=== PATIENT | female | born 1985 | race Caucasian/White ===

== ENCOUNTER 2019-04-25 10:50 | Emergency (ER) | payer MEDICAID ==
[~2019-04-25] VITALS: Ht 157.5 cm; Wt 121.6 kg
[2019-04-25 11:15] VITALS: BP 141/87
--- NOTE | 2019-04-25 11:25 | NUR ---
BIB . AAO X4 C/O LEFT LOWER ABD PAIN RADIATING TO RIGHT LOWER ABDOMINAL SINCE ONE WEEK AGO, TOOK IBUPROFEN LAST NIGHT WITH MILD RELIEF. PT STATES ACHING AND STABBING PAIN 8/10. PT ALSO C/O NAUSEA, VOMITTED ONE TIME LAST NIGHT WITH YELLOWISH CLEAR LIQUID MUCOUS. PT DENIES VOMITING AT THIS TIME. PT AFEBRILE, DENIES DIARRHEA. ABDOMEN TO LEFT LOWER QUADRANT TENDER TO TOUCH. ALL ABDOMINAL QUADRANTS ACTIVE UPON AUSCULTATION. ER TO EVALUATE PT.
--- NOTE | 2019-04-25 11:52 | NUR ---
DR GAYLE AT BEDSIDE FOR PT EVALUATION
[2019-04-25] MEDS ORDERED: DICYCLOMINE 20 MG/2 ML VIAL IM ONE (12:05)
[2019-04-25] MEDS ORDERED: KETOROLAC 60 MG/2 ML VIAL IM ONE (12:05)
[2019-04-25] MEDS ORDERED: LACTULOSE 20 GM/30 ML UDC PO ONE (12:05)
--- NOTE | 2019-04-25 12:14 | NUR ---
Patient taken to XRAY via wheelchair by tech.
[2019-04-25 13:23] LABS: BARBITURATE, URINE NEG. ng/ml (NEG <=200); BENZODIAZEPINE, URINE NEG. ng/mL (NEG <=200); CANNABINOID, URINE NEG. ng/mL (NEG <=50); COCAINE, URINE NEG. ng/mL (NEG <=300); OPIATE, URINE NEG. ng/mL (NEG <=2000); PHENCYCLIDINE SCREEN,URINE NEG. ng/mL (NEG <=25)
[2019-04-25 13:45] VITALS: BP 137/88
--- NOTE | 2019-04-25 13:45 | NUR ---
Patient discharged with v/s stable. Written and verbal after care instructions given and explained. Patient alert, oriented and verbalized understanding of instructions. Ambulatory with steady gait. All questions addressed prior to discharge. ID band removed. Patient advised to follow up with PMD. Rx of REGLAN 10MG AND COLACE 100MG given. Patient educated on indication of medication including possible reaction and side effects. Opportunity to ask questions provided and answered.
[2019-04-25 13:46] LABS: APPEARANCE,URINE HAZY (CLEAR); BILIRUBIN,URINE NEGATIVE (NEGATIVE); BLOOD, URINE 1+ (NEGATIVE); COLOR,URINE YELLOW (YELLOW); LEUKOCYTE ESTERASE ,URINE NEGATIVE (NEGATIVE); NITRITE, URINE NEGATIVE (NEGATIVE); PH,URINE 6.5 (5.0-9.0); UGLUCOSE NEGATIVE (NEGATIVE)
[2019-04-25 14:01] LABS: WBC,URINE 0-5 /HPF (0-5)
== END 2019-04-25 13:45 | disposition home or self-care (01) ==
LOC: MED 10:50
DX: R10.32 Left lower quadrant pain (principal); K59.00 Constipation, unspecified; R11.2 Nausea with vomiting, unspecified; Z90.49 Acquired absence of other specified parts of digestive tract
CPT/HCPCS: 74018; 80305; 81001; 81025; 96372; 99284; J0500; J1885

== ENCOUNTER 2019-12-20 00:29 | Emergency (ER) | payer MEDICAID ==
[~2019-12-20] VITALS: Ht 167.6 cm; Wt 117.9 kg
[2019-12-20 00:40] VITALS: BP 135/90
--- NOTE | 2019-12-20 00:43 | NUR ---
TO LOBBY A/W BED AMBULATORY
[2019-12-20 03:44] VITALS: BP 135/90
--- NOTE | 2019-12-20 03:44 | NUR ---
PATIENT EDUCATED AND DISCHARGED BY DR. ROY. AMB WITH STEADY GAIT.
[2019-12-20 04:09] LABS: APPEARANCE,URINE CLEAR (CLEAR); BILIRUBIN,URINE NEGATIVE (NEGATIVE); BLOOD, URINE 2+ (NEGATIVE); COLOR,URINE YELLOW (YELLOW); LEUKOCYTE ESTERASE ,URINE NEGATIVE (NEGATIVE); NITRITE, URINE NEGATIVE (NEGATIVE); UGLUCOSE NEGATIVE (NEGATIVE)
[2019-12-20 05:08] LABS: RBC,URINE 11-20 (MOD) /HPF (0-5); WBC,URINE 0-5 /HPF (0-5)
== END 2019-12-20 03:44 | disposition home or self-care (01) ==
LOC: MED 00:29
DX: N39.0 Urinary tract infection, site not specified (principal)
CPT/HCPCS: 81001; 99283

== ENCOUNTER 2024-04-21 20:03 | Emergency (ER) | payer MEDICAID ==
[~2024-04-21] VITALS: Ht 157.5 cm; Wt 133.8 kg
[2024-04-21 20:32] VITALS: BP 161/90; PULSE 80; RESP 16; TEMP 98.2; O2SAT 98
[2024-04-21 20:51] VITALS: BP 161/90; PULSE 80; RESP 16; TEMP 98.2; O2SAT 98
== END 2024-04-21 22:02 | disposition home or self-care (01) ==
LOC: MED 20:03
DX: H11.32 Conjunctival hemorrhage, left eye (principal)
CPT/HCPCS: 99281